=== PATIENT | male | born 1955 | race Caucasian/White ===

== ENCOUNTER 2017-08-01 18:47 | Emergency (ER) | payer MEDICARE, BC, SELFPAY ==
[2017-08-01 18:37] VITALS: BP 133/75; PULSE 66; RESP 18; TEMP 36.6; O2SAT 94; BMI 22.8
--- NOTE | 2017-08-01 18:58 | PC.NURSE ---
PT REFUSED TO SIGN INTENT TO TREAT NOTES
--- NOTE | 2017-08-01 19:01 | XR_ITS ---
XR chest 2V Ordering Physician: Jose Luis Holman MD Patient Age: 62 years: Male HISTORY: ITS.REASON: CHEST PAIN Chest wall pain TECHNIQUE: PA and lateral chest COMPARISON :None 9 FINDINGS . Bilateral rib fractures evident. Old healed Left ribs 6, 7, 8 and9 evident. Density associated with these areas of step-off and old healing. Old healed right posterior seventh rib fractures also noted. Otherwise lung dominguez appear clear. Heart, danya and mediastinal structures intact. T-spine intact. Upper abdomen unremarkable. IMPRESSION: 1. No acute cardiopulmonary findings Old healed left rib 6, 7, 8, ninth rib fractures . Old healed right seventh rib fracture
[2017-08-01 19:17] LABS: Basophils % 0.5 % (0.1-2.0); Eosinophils # 0.1 K/mm3 (0.0-0.4); Eosinophils % 2.1 % (0.1-12.0); Hematocrit 41.4 % (42.0-52.0); Hemoglobin 13.3 g/dL (14.1-18.0); Lymphocytes % 34.3 K/mm3 (10-50); Mean Corpuscular Hemoglobin 31.9 pg (27.0-31.2); Mean Corpuscular Volume 99.7 fl (80-94); Mean Platelet Volume 7.9 fl (7.4-10.4); Monocytes # 0.3 K/mm3 (0.1-1.0); Neutrophils # 3.3 K/mm3 (1.8-7.8); Neutrophils % 58.1 % (37.0-80.0); Platelet Count 285 K/mm3 (142-424); Red Blood Count 4.15 M/mm3 (4.60-6.20); Red Cell Distribution Width 13.3 % (11.5-17.5); White Blood Count 5.7 K/mm3 (4.8-10.8)
--- NOTE | 2017-08-01 19:23 | HMH.EDCP ---
ED Disposition Clinical Impression: Chest pain Qualifiers: Chest pain type: other chest pain Qualified Code(s): R07.89 - Other chest pain; R07.8 - Other chest pain Disposition: Home, Self-Care Condition on Discharge: Good Instructions: DI for Atypical Chest Pain Additional Instructions: see pcp for follow up - Critical Care Critical Care Time: No Attestation: On 08/01/17, the high probability of a clinically significant, sudden or life threatening deterioration of the following system(s) required my full and direct attention, intervention and personal management. The time I documented below is in addition to time spent performing reported procedures but includes the following listed in this critical care notation. Medical Decision Making - Medical Records Medical records reviewed: Yes: I reviewed the patient's medical records. Vital Signs: 08/01/17 18:37 Temperature 97.8 F Temperature Source Oral Pulse Rate [Right Brachial] 66 Respiratory Rate 18 Blood Pressure [Right Arm] 133/75 Blood Pressure Mean [Right Arm] 94 Blood Pressure Source [Right Arm] Automatic Cuff Blood Pressure Position [Right Arm] Sitting 02 Sat by Pulse Oximetry 94 L Oxygen Delivery Method Room Air - Lab Data Lab results reviewed: Yes: I reviewed the patient's lab results. Lab Results 08/01/17 18:45: WBC 5.7, RBC 4.15 L, Hgb 13.3 L, Hct 41.4 L, MCV 99.7 H, MCH 31.9 H, MCHC 32.0, RDW 13.3, Plt Count 285, MPV 7.9, Neut % (Auto) 58.1, Lymph % (Auto) 34.3, [place] % (Auto) 5.0, Eos % (Auto) 2.1, Baso % (Auto) 0.5, Neut # (Auto) 3.3, Lymph # (Auto) 2.0, [place] # (Auto) 0.3, Eos # (Auto) 0.1, Baso # (Auto) 0.0 08/01/17 18:45: Sodium 142, Potassium 4.3, Chloride 105, Carbon Dioxide 28, Anion Gap 13.3, BUN 27 H, Creatinine 1.10, Estimated Creat Clear 71, Estimated GFR 68, Est GFR ( Amer) 83, Glucose 132 H, Calcium 9.9, Total Bilirubin 0.2, AST 21, ALT 29, Alkaline Phosphatase 77, Total Creatine Kinase 226, CK-MB (CK-2) 3.3, CK-MB (CK-2) Rel Index 1.5, Troponin I < 0.02, Total Protein 7.2, Albumin 3.8, Globulin 3.4 H, Albumin/Globulin Ratio 1.1 08/01/17 18:45: B-Natriuretic Peptide 6 Result diagrams: 08/01/17 18:45 08/01/17 18:45 Orders (Tests/Meds): ORDERS Category Date Time Status Chest XR 2 view (NOT portable) [XR chest 2V] Stat Exams 08/01/17 19:01 Taken - Radiology Data #1 Image(s): Chest Image Reviewed: Yes I reviewed the patient's radiology image Preliminary Findings: Abnormal (old rib fx ) - ECG Data Tracing #1 I reviewed this ECG and interpreted as documented below: Normal Sinus Rhythm: Yes Ischemic changes: non-specific ST-T wave changes - Edi Inquiry Pt receiving controlled substance: No Chest Pain HPI - General Chief Complaint: PAIN Stated Complaint: CHEST PAIN Time Seen by Provider: 08/01/17 19:24 Mode of Arrival: EMS Source of Information: Patient, EMS, Medical Record Limitations: No Limitations Description of Symptoms (Recalled from ER Triage Doc. by RN): CHEST PAIN AFTER ALTERCATION AND LEFT SIDE NECK PAIN - History of Present Illness HPI narrative: pt with occ chest pain but has no chest pain now MD complaint: chest pain Onset (ago): hour(s) Duration: now resolved Activity at onset: emotional stress event Pain location: left chest Severity: moderate Quality: sharp Pain radiation: none - MARTIN Score Non-Stemi Age of patient: Less than 65 yrs Number of risk factors for CAD: Presence of less than 3 Prior coronary artery stenosis(seen in coronary angiography): Less than 50% ST-Segment deviation on ECG (more than 1 min): Absent Prior aspirin intake: No ASA in the last 7 days Severe anginal chest pain: No or one episode in last 24 hours Elevated cardiac markers(CK-MB or troponin): Absent Non-Stemi Risk Score: 0 - Related Data Home Medications Medication Instructions Recorded Confirmed Atorvastatin Calcium [Atorvastatin 80 mg PO DIRECTED 08/01/17 08/01/17 80mg Ta
[2017-08-01 19:32] LABS: Alanine Aminotransferase 29 U/L (12-78); Albumin Level 3.8 gm/dL (3.4-5.0); Albumin/Globulin Ratio 1.1 (1.1-1.8); Alkaline Phosphatase 77 U/L (46-116); Anion Gap 13.3 mEq/L (5-15); Aspartate Amino Transferase 21 U/L (15-37); Bilirubin,Total 0.2 mg/dL (0.2-1.0); Blood Urea Nitrogen 27 mg/dL (7-18); CKMB Relative Index 1.5 U/L (0-4.0); Calcium 9.9 mg/dL (8.5-10.1); Carbon Dioxide 28 mmol/L (21.0-32.0); Chloride 105 mmol/L (98-107); Creatine Kinase 226 U/L (39-308); Creatine Kinase MB 3.3 mg/ml (0.0-3.6); Creatinine Clearance Estimated 71 mL/min (0-300); Estimated Glomerular Filt Rate 68 ml/min (>60); GFR (African American) 83 ML/MIN (>60); Globulin 3.4 gm/dl (1.3-3.2); Glucose 132 mg/dL (74-106); Potassium 4.3 mmoL/L (3.5-5.1); Sodium 142 mmol/L (136-145); Total Protein,Serum 7.2 gm/dL (6.4-8.2); Troponin I < 0.02 ng/ml (0.00-0.06)
[2017-08-01 21:37] VITALS: BP 144/90; PULSE 73; RESP 20; TEMP 36.7; O2SAT 100
== END 2017-08-01 20:55 | disposition home or self-care (01) ==
PROVIDERS: Emergency Provider Emergency Medicine
DX: R07.89 Other chest pain (principal); M54.2 Cervicalgia; Z79.84 Long term (current) use of oral hypoglycemic drugs; Z88.6 Allergy status to analgesic agent; Z88.8 Allergy status to other drugs, medicaments and biological substances; R06.02 Shortness of breath
CPT/HCPCS: 71046; 80053; 82550; 82553; 83880; 84484; 85025; 93005; 93041; 99282

== ENCOUNTER → 2018-05-09 06:25 | Outpatient (CLI) | payer MEDICARE, BC, SELFPAY ==
--- NOTE | 2018-05-09 06:26 | CA_ITS ---
PROCEDURE: 2-D M-mode and color Doppler study INDICATIONS FOR THE TEST: Chest pain COPD Heart Murmur Tobacco Smoking+ Palpitations Fatigue Syncope Edema Hypertension+Diabetes Mellitus+ Rheumatic Fever SOB+KELLER Obesity Hyperlipidemia+ Family History HD Additional History PATIENT INFORMATION HEIGHT: 72 WEIGHT:174 GENDER: Male B/P:122/68 2-D/M-MODE INTERPRETATION: 2-D MEASUREMENTS OBSERVED VALUES IN CMS Right Ventricular Dimension (RVDd) 2.5 Interventricular Septum (Thickness)(IVsd) 1.5 Left Ventricular Internal Dimensions(LVIDd) 5.5 Left Ventricular Posterior Wall (Thickness)(LVPWd) 0.6 Aortic Root 3.7 Aortic Cusp Separation 2.3 Left Atrial Dimensions (LAD) 3.7 2D 1. Left atrium is mildly enlarged, left ventricle is normal size, there is mild concentric left ventricular hypertrophy, there is borderline left ventricular systolic function, visually estimated ejection fraction approximately 45% with no regional wall motion abnormality. 2. The right atrium and right ventricle are normal size and contractility. 3. The aortic valve is minimally thickened and fibrosed. 4. The mitral and tricuspid valve leaflets are minimally thickened. 5. The pulmonic valve is poorly visualized. 6. No significant pericardial effusion noted. DOPPLER INTERROGATION: Doppler interrogation of the aortic, mitral and tricuspid valvular presence of mild mitral and tricuspid regurgitation, tricuspid regurgitation jet velocity is inadequate for calculation of the right ventricular systolic pressure, diastolic parameters are inconclusive. CONCLUSION: 1. Mildly enlarged left atrium, normal left ventricular size, mild concentric left ventricular hypertrophy, borderline left ventricular systolic function, visually estimated ejection fraction 45% with no regional wall motion abnormality, diastolic parameters are inconclusive. 2. Mild mitral and tricuspid regurgitation 3. No significant pericardial effusion noted.
== END ==
PROVIDERS: PCP Emergency Medicine; Visit Provider Internal Medicine
DX: R07.89 Other chest pain
CPT/HCPCS: 93306

== ENCOUNTER → 2018-05-11 07:19 | Outpatient (CLI) | payer MEDICARE, BC, SELFPAY ==
--- NOTE | 2018-05-11 09:43 | NM_ITS ---
History and Indications: Hypertension, diabetes, hyperlipidemia, tobacco use, chest pain, shortness of breath and fatigue. Procedure: Patient received a 0.4 mg of intravenous Lexiscan, resting heart rate was 72 bpm resting blood pressure 127/75, with Lexiscan maximum heart rate achieved was 99 bpm which is less than 85% of the maximum predicted heart rate and a blood pressure was 120/55. With Lexiscan patient complained of mild chest pressure and shortness of breath. Electrocardiogram: Resting electrocardiogram showed sinus rhythm, with Lexiscan there is [address] segment depression noted from the baseline EKG. The EKG portion of the Lexiscan Myoview is positive for ischemia. . Cardiac stress and resting SPECT images: Cardiac stress and rest SPECT images were obtained using technetium 99 Myoview 32.1 mCi stress and 9.5 mCi at rest. Gated SPECT further analysis of segmental wall motion and calculation of the ejection fraction also done. Cardiac stress and resting SPECT images show a fixed defect involving the inferior and posterobasal wall consistent with area of myocardial scarring, there is no significant christian-infarct ischemia. Computer derived ejection fraction is 48% with moderate inferior and posterobasal wall hypokinesis. Right ventricle is normal size and contractility Conclusion: 1. The EKG portion of the Lexiscan Myoview is positive for ischemia. 2. Scintigraphic evidence of myocardial scarring involving the inferior and posterobasal wall without significant christian-infarct ischemia. Computer derived ejection fraction 48% with segmental wall motion abnormality described above, right ventricle is normal size and contractility. 3. Abnormal Lexiscan Myoview study.
--- NOTE | 2018-05-11 09:47 | HMH.ITSHM ---
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 []metformin lisinopril asa cialis atorvastatin
== END ==
PROVIDERS: PCP Emergency Medicine; Visit Provider Internal Medicine
DX: E11.9 Type 2 diabetes mellitus without complications (principal); E78.5 Hyperlipidemia, unspecified; I10 Essential (primary) hypertension; R06.02 Shortness of breath; R07.9 Chest pain, unspecified; Z72.0 Tobacco use; Z79.84 Long term (current) use of oral hypoglycemic drugs
CPT/HCPCS: 78452; 93017; A9502; J2785

== ENCOUNTER 2018-06-23 09:18 | Outpatient (RCR) | payer MEDICARE, BC, SELFPAY | END 2018-08-31 13:21 | disposition home or self-care (01) | LOC: PT 09:18 | PROVIDERS: Visit Provider Internal Medicine | DX: Z95.5 Presence of coronary angioplasty implant and graft (principal) ==

== ENCOUNTER → 2019-07-24 11:13 | Outpatient (CLI) | payer MEDICARE, BC, SELFPAY ==
--- NOTE | 2019-07-24 11:17 | CA_ITS ---
APPROVED REPORT Trimmer Buffing Wheel: Brenda Orourke RVT Laterality: Bilateral Study Quality: Adequate Indications: Dizziness and Vertigo Risk Factors Hypertension: Hyperlipidemia Smoking Doppler Spectral Velocity Analysis ECA (R) 61.60/15.20 cm/s ECA (L) 66.70/18.20 cm/s dICA (R) 62.00/19.20 cm/s dICA (L) 69.00/26.30 cm/s Lexie (R) 48.40/14.70 cm/s Lexie (L) 61.90/22.60 cm/s pICA (R) 32.90/8.30 cm/s pICA (L) 25.00/6.00 cm/s dCCA (R) 65.50/16.70 cm/s dCCA (L) 65.30/17.30 cm/s pCCA (R) 95.00/19.70 cm/s pCCA (L) 90.60/18.00 cm/s Vert (R) 45.50/15.20 cm/s Vert (L) 34.50/12.50 cm/s ICA/CCA 0.95 ICA/CCA 1.06 Findings Study suggests less than 20% stenosis of the right internal cartoid artery. Study suggests less than 20% stenosis of the left internal cartoid artery. Antegrade flow seen bilateral vertebral arteries. Conclusion No increased velocities to suggest hemodynamically significant stenosis in either internal carotid artery. Electronically signed by : Apolinar Crews MD 07/25/2019 18:02:17
== END ==
PROVIDERS: PCP Emergency Medicine; Visit Provider Emergency Medicine
DX: R09.89 Other specified symptoms and signs involving the circulatory and respiratory systems (principal)
CPT/HCPCS: 93880

== ENCOUNTER → 2019-10-29 08:33 | Outpatient (CLI) | payer MEDICARE, BC, SELFPAY ==
[2019-10-29 09:44] LABS: Blood Urea Nitrogen 20 mg/dl (9-20); Estimated Glomerular Filt Rate 76 ml/min (>60); GFR (African American) 92 ML/MIN (>60)
--- NOTE | 2019-10-29 10:04 | CT_ITS ---
PROCEDURE: CT SOFT TISSUE NECK WO/W CON CLINICAL HISTORY: neck mass Right-sided neck mass COMPARISON: No exams were available for comparison TECHNIQUE: Oral Contrast: 75ml Optiray 350 IV Contrast: None Axial images obtained with sagittal and coronal reformats. All CT scans at the facility use one or more dose reduction, viz: automated exposure control, ma/kV adjustment per patient size (including targeted exams where dose is matched to indication, i.e. head), or iterative reconstruction technique. FINDINGS: A BB is placed at the area of palpable concern on the right neck. Axial images are obtained without and with contrast with coronal and sagittal reformats. The BB is placed in the right lateral neck and is superficial to the sternocleidomastoid muscle at the level of the hyoid bone. There is no abnormal soft tissue mass deep to the placed BB. A branch of the external jugular vein crosses in this region but is similar on the left side. No adenopathy is apparent. The the orbits have an unremarkable appearance. There is some mild mucosal thickening of the maxillary sinuses but no sinus air-fluid level or mass. The nasopharynx, pharynx, and hypopharynx have an unremarkable appearance. The parotid and submandibular glands are unremarkable without evidence of mass. There is a small nodular density along the posterior aspect of the of both parotid glands and may be due to small lymph node measuring 5 mm. This there are few small cervical lymph nodes present with no dominant adenopathy the glottic region and subglottic region are unremarkable. No obvious thyroid nodule. The thyroid gland is slightly prominent. Lung apices are unremarkable. There is mild degenerative disc disease at C6-C7 IMPRESSION: 1. No acute finding. No mass adenopathy or abscess evident. Specifically, no abnormality to correspond to the area of palpable concern. 2. Incidental nonacute findings as described above. Dictated by: Apolinar Crews MD 10/30/2019 11:50 Electronically signed by Apolinar Crews MD in [facility] 10/30/2019 11:50
== END ==
PROVIDERS: PCP Emergency Medicine; Visit Provider Otolaryngology
DX: R22.1 Localized swelling, mass and lump, neck (principal)
CPT/HCPCS: 36415; 70492; 82565; 84520; Q9967

== ENCOUNTER 2020-05-10 20:02 | Emergency (ER) | payer MEDICARE, MEDICAID, SELFPAY ==
[2020-05-10] VITALS (7 sets, daily range): BP systolic 102–129; BP diastolic 52–79; PULSE 71–86; RESP 15–16; TEMP 37.1; O2SAT 96–98; BMI 22.1
--- NOTE | 2020-05-10 | ECG_ITS ---
APPROVED REPORT Exam: Resting ECG HR:83 bpm ECG Measurements Heart Rate 83 AXES MN 170 P 62 QRSd 86 QRS 89 QT 364 T 26 QTc 427 Conclusion Normal sinus rhythm Normal ECG Electronically signed by : Evert Maloney, 05/11/2020 18:30:49
--- NOTE | 2020-05-10 20:09 | XR_ITS ---
PROCEDURE: XR CHEST 2V CLINICAL HISTORY: Chest pain Left-sided COMPARISON: CR CXR2V XR chest 2V from 06/23/2018 CR CXR2V XR chest 2V from 07/06/2018 CR CXR1VP XR chest portable from 07/08/2018 FINDINGS: The cardiomediastinal silhouette and pulmonary vascularity are within normal limits. The lungs are well expanded with no suspicious nodules, or pleural effusions. There is slightly accentuated bronchovascular markings in the left lower lobe primarily posterior basilar segment and a minimal developing pneumonic infiltrate cannot be excluded. There are multiple healed left rib fractures. . No acute bony abnormalities. IMPRESSION: Probable developing early pneumonic infiltrate left lower lobe, multiple old healed left rib fractures Dictated by: Dr. Jose Luis Sharma MD 05/10/2020 20:48 Dr. Jose Luis Sharma MD in [place] 05/10/2020 20:48
--- NOTE | 2020-05-10 20:22 | HMH.EDGENADL ---
ED Disposition Clinical Impression: Chest pain Qualifiers: Chest pain type: unspecified Qualified Code(s): R07.9 - Chest pain, unspecified Disposition: Home, Self-Care Condition on Discharge: Good Additional Instructions: Follow-up with cardiology. If you have any new, changing, worsening, or concerning symptoms, come back to the emergency department. Referrals: Artis Valadez MD [Primary Care Provider] - Gael Anand MD [Staff Physician] - - Critical Care Critical Care Time: No Attestation: On 05/10/20, the high probability of a clinically significant, sudden or life threatening deterioration of the following system(s) required my full and direct attention, intervention and personal management. The time I documented below is in addition to time spent performing reported procedures but includes the following listed in this critical care notation. Medical Decision Making - Medical Records Medical records reviewed: Yes: I reviewed the patient's medical records. MR Comment: 64yo M with hx of stent presents to the ED with Chest pain for 5 hours PATIENT REGISTRATION REP. He arrives to the ED hemodynamically stable with reassuring vital signs and looks well on exam. Not like prior chest pain with stenting. No symptoms at this time. Has already recieved ASA. Will get chest pain workup and reassess. On reassessment, he remains well. He denies any return of his pain or symptoms. Labs not actionable and troponin normal, ECG with normal sinus rhythm, rate 70's, no concerning ST changes, intervals normal. He had normal second troponin and ECG, spoke with him about this and he desires to follow up with cardiology versus staying for further workup. I think this is reasonable given the history and findings. He was given strict return precautions and discharge instructions and verbalizes an understanding and agreement to the plan. Safe to discharge. - Edi Inquiry Pt receiving controlled substance: No Vital Signs: 05/10/20 19:53 05/10/20 20:23 05/10/20 20:53 Temperature 98.8 F Temperature Source Oral Pulse Rate [Left Radial] 86 71 72 Respiratory Rate 16 16 15 Blood Pressure [Right Arm] 124/67 126/74 114/65 Blood Pressure Mean [Right Arm] 86 91 81 Blood Pressure Source [Right Arm] Automatic Cuff Automatic Cuff Automatic Cuff Blood Pressure Position [Right Arm] Sitting Sitting Sitting 02 Sat by Pulse Oximetry 97 96 97 Oxygen Delivery Method Room Air Room Air Room Air 05/10/20 21:23 05/10/20 22:30 05/10/20 22:52 Temperature Temperature Source Pulse Rate [Left Radial] 75 72 79 Respiratory Rate 15 15 16 Blood Pressure [Right Arm] 108/72 L 129/79 102/52 L Blood Pressure Mean [Right Arm] 84 95 68 Blood Pressure Source [Right Arm] Automatic Cuff Automatic Cuff Blood Pressure Position [Right Arm] Sitting Sitting 02 Sat by Pulse Oximetry 98 98 97 Oxygen Delivery Method Room Air Room Air - Lab Data Lab Results 05/10/20 19:50: WBC 8.6, RBC 4.60, Hgb 14.6, Hct 44.5, MCV 96.8 H, MCH 31.8 H, MCHC 32.8, RDW 14.5, Plt Count 371, MPV 7.5, Neut % (Auto) 69.4, Lymph % (Auto) 23.8, [place] % (Auto) 4.9, Eos % (Auto) 1.3, Baso % (Auto) 0.5, Neut # (Auto) 6.0, Lymph # (Auto) 2.1, [place] # (Auto) 0.4, Eos # (Auto) 0.1, Baso # (Auto) 0.1 05/10/20 19:50: Sodium 138, Potassium 4.3, Chloride 102, Carbon Dioxide 25, Anion Gap 15.3 H, BUN 16, Creatinine 1.20, Estimated Creat Clear 61, Estimated GFR 61, Est GFR ( Amer) 74, Glucose 231 H, Calcium 11.3 H, Troponin I < 0.01 05/10/20 19:50: Total Bilirubin 0.3, Direct Bilirubin 0.2, Conjugated Bilirubin 0.0, Indirect Bilirubin 0.1, Unconjugated Bilirubin 0.1, AST 20, ALT 16, Alkaline Phosphatase 112, Total Protein 8.2, Albumin 5.0 Result diagrams: 05/10/20 19:50 05/10/20 19:50 Orders (Tests/Meds): ORDERS Category Date Time Status Troponin I Q3H Lab 05/10/20 22:45 Received Troponin I Q3H Lab 05/11/20 02:15 Ordered General Adult HPI - General Chief complaint: Chest Pain Stated
[2020-05-10 20:26] LABS: Basophils # 0.1 K/mm3 (0-0.2); Basophils % 0.5 % (0.1-2.0); Eosinophils # 0.1 K/mm3 (0.0-0.4); Eosinophils % 1.3 % (0.1-12.0); Hematocrit 44.5 % (42.0-52.0); Hemoglobin 14.6 g/dL (14.1-18.0); Lymphocytes # 2.1 K/mm3 (0.7-4.5); Lymphocytes % 23.8 % (10-50); Mean Corpuscular HGB Conc 32.8 g/dL (31.8-35.4); Mean Corpuscular Hemoglobin 31.8 pg (27.0-31.2); Mean Corpuscular Volume 96.8 fl (80-94); Mean Platelet Volume 7.5 fl (7.4-10.4); Monocytes # 0.4 K/mm3 (0.1-1.0); Monocytes % 4.9 % (1.7-9.3); Neutrophils % 69.4 % (37.0-80.0); Platelet Count 371 K/mm3 (142-424); Red Cell Distribution Width 14.5 % (11.5-17.5); White Blood Count 8.6 K/mm3 (4.8-10.8)
[2020-05-10 20:27] LABS: Alanine Aminotransferase 16 U/L (12-78); Alkaline Phosphatase 112 U/L (38-126); Anion Gap 15.3 mEq/L (5-15); Aspartate Amino Transferase 20 U/L (17-59); Bilirubin,Direct 0.2 mg/dl (0.0-0.4); Bilirubin,Indirect 0.1 mg/dL (0.0-0.9); Bilirubin,Total 0.3 mg/dl (0.2-1.3); Bilirubin,Unconjugated 0.1 mg/dL (0.0-1.1); Blood Urea Nitrogen 16 mg/dl (9-20); Calcium 11.3 mg/dl (8.4-10.2); Carbon Dioxide 25 mmol/L (22.0-30.0); Chloride 102 mmol/L (98-107); Creatinine Clearance Estimated 61 mL/min (50-200); Estimated Glomerular Filt Rate 61 ml/min (>60); GFR (African American) 74 ML/MIN (>60); Glucose 231 mg/dl (74-100); Potassium 4.3 mmoL/L (3.5-5.1); Sodium 138 mmol/L (136-145); Total Protein,Serum 8.2 g/dl (6.3-8.2)
[2020-05-10 20:44] LABS: Troponin I < 0.01 ng/ml (0.00-0.034)
--- NOTE | 2020-05-10 21:51 | PC.NURSE ---
pt alert and oriented and denies any chest pain/discomfort, SOB at this time
[2020-05-10 23:20] LABS: Troponin I < 0.01 ng/ml (0.00-0.034)
--- NOTE | 2020-05-10 23:26 | PC.NURSE ---
called [facility] for pts ride. they stated they would try to find a ride for the pt
--- NOTE | 2020-05-10 23:44 | PC.NURSE ---
called louisa for pt ride
[2020-05-11 00:05] VITALS: BP 116/65; PULSE 79; RESP 16; TEMP 36.8; O2SAT 96
== END 2020-05-11 00:16 | disposition home or self-care (01) ==
PROVIDERS: Emergency Provider Emergency Medicine; PCP Emergency Medicine
DX: R07.9 Chest pain, unspecified (principal); E11.65 Type 2 diabetes mellitus with hyperglycemia; I10 Essential (primary) hypertension; E78.5 Hyperlipidemia, unspecified; I25.10 Atherosclerotic heart disease of native coronary artery without angina pectoris; F41.8 Other specified anxiety disorders; F17.210 Nicotine dependence, cigarettes, uncomplicated; Z88.5 Allergy status to narcotic agent; Z88.8 Allergy status to other drugs, medicaments and biological substances; Z79.899 Other long term (current) drug therapy
CPT/HCPCS: 71046; 80048; 80076; 84484; 85025; 93005; 99283